=== PATIENT | male | born 1990 | race Caucasian/White ===

== ENCOUNTER 2023-02-28 09:21 | Emergency (ER) | payer OTHER, MEDICAID ==
[~2023-02-28] VITALS: Ht 180.3 cm; Wt 75.6 kg
[2023-02-28] MEDS ORDERED: CEPHALEXIN500 M1 PO (10:06)
[2023-02-28 10:18] VITALS: BP 114/68
== END 2023-02-28 10:22 | disposition home or self-care (01) ==
LOC: ED 09:21
DX: S61.300A Unspecified open wound of right index finger with damage to nail, initial encounter (principal); X50.0XXA Overexertion from strenuous movement or load, initial encounter; Z88.0 Allergy status to penicillin
CPT/HCPCS: 73140; 99283-25; A9270